=== PATIENT | female | born 1980 | race Caucasian/White ===

== ENCOUNTER 2020-08-18 12:29 | Outpatient (CLI) | payer BC, SELFPAY ==
[2020-08-18 13:11] LABS: Basophils Absolute Auto 0.1 K/mm3 (0.0-0.1); Basophils Percent Auto 0.9 % (0.2-1.2); Eosinophils Absolute Auto 0.3 K/mm3 (0-0.3); Eosinophils Percent Auto 2.7 % (0-4.4); Hematocrit 39.8 % (37.0-47.0); Hemoglobin 13.4 g/dL (12.0-15.0); Immature Granulocyte Absolute 0.03 K/mm3 (0.00-0.031); Immature Granulocyte Percent A 0.3 % (0-0.5); Lymphocytes Absolute Auto 3.03 K/mm3 (0.9-3.2); Lymphocytes Percent Auto 27.9 % (18.3-44.2); Mean Corpuscular HGB Conc 33.7 g/dl (32-36); Mean Corpuscular Hemoglobin 31.7 pg (26-34); Mean Corpuscular Volume 94.1 fl (80-100); Mean Platelet Volume 10.7 fl (7.4-10.4); Monocytes Absolute Auto 0.8 K/mm3 (0.1-0.6); Monocytes Percent Auto 7.4 % (2.6-8.5); Neutrophils Absolute Auto 6.6 K/mm3 (1.3-6.7); Neutrophils Percent Auto 60.8 % (45.5-73.1); Platelet Count Result 261 k/mm3 (150-375); Red Blood Count 4.23 M/mm3 (4.2-5.4); Red Cell Distribution Width 12.6 % (11.5-14.5); White Blood Count 10.9 K/mm3 (4.5-10.0)
[2020-08-18 13:15] LABS: Add Urine Microscopic? YES; Appearance Urine Clear (Clear); Bacteria Urine Trace /hpf; Bilirubin Urine Negative (Negative); Blood Urine 1+ (Negative); Color Urine Yellow (Yellow); Glucose Urine UA Negative (Negative); Ketones Urine Negative (Negative); Leukocyte Esterase Ur Negative LEU/UL (NEGATIVE); Mucus Urine Rare /lpf; Nitrate Urine Negative (Negative); Protein Urine Negative (Negative); RBC Urine 0-2 /hpf (0-2); Specific Grav Ur 1.017 (1.001-1.035); Squamous Epithelial Cell Urine Rare /hpf (Few); Urobilinogen Urine Negative mg/dL (<2.0); WBC Urine 0-3 /hpf (0-3)
[2020-08-18 13:28] LABS: Amylase 65 U/L (30-110); Lipase 77 U/L (23-300)
[2020-08-18 14:18] LABS: Free T4 Free Thyroxine 0.79 ng/mL (0.78-2.19)
== END 2020-08-18 12:30 | disposition home or self-care (01) ==
PROVIDERS: PCP Physician Assistant; Visit Provider Physician Assistant
DX: R10.84 Generalized abdominal pain (principal)
CPT/HCPCS: 36415; 81001; 82150; 83690; 84439; 84443; 85025; 87086

== ENCOUNTER 2020-08-18 13:35 | Outpatient (CLI) | payer BC, SELFPAY ==
--- NOTE | ~2020-08-18 | CT_ITS ---
EXAMINATION: CT abdomen pelvis w con DATE: 08/18/2020 13:57 INDICATION: Generalized abdominal pain, bloating. Bilateral flank pain for one week. Hematuria. TECHNIQUE: Computed tomography (CT) of the abdomen and pelvis was performed with 100 cc Omnipaque 350 intravenous contrast. Automated exposure control and iterative reconstruction technique were employe d. Exam dose: 471.60 mGy-cm total exam DLP. COMPARISON: 04/11/2019 CT abdomen pelvis FINDINGS: Normal heart size. No pericardial or pleural effusion. The liver, gallbladder, bile ducts, spleen, pancreas and pancreatic duct appear normal. Normal morpho logy of the adrenal glands. No renal mass lesion or urinary tract calculus or hydroureteronephrosis is evident. The urinary bladd er is unremarkable. Normal appendix. There is a prominent amount of fecal material within the colon but no evidence of jordan wel obstruction, bowel wall thickening, pneumatosis or intraperitoneal free air. Occasional sigmoid diverticula; no CT evidence of diverticulitis. Peripherally enhancing 2 cm left ovarian probable corpus luteum cyst. Included skeletal structures are unremarkable. IMPRESSION: No urinary tract calculus or hydroureteronephrosis 2 cm peripherally enhancing ovarian cyst Mild sigmoid colon diverticulosis; no CT evidence of diverticulitis Reviewed, dictated and finalized at [facility]. Reviewed, dictated and finalized at location B. CLERK
== END 2020-08-18 13:36 | disposition home or self-care (01) ==
PROVIDERS: PCP Physician Assistant; Visit Provider Physician Assistant
DX: R10.84 Generalized abdominal pain (principal); N83.202 Unspecified ovarian cyst, left side; K57.90 Diverticulosis of intestine, part unspecified, without perforation or abscess without bleeding
CPT/HCPCS: 74177; Q9967

== ENCOUNTER 2021-03-17 18:58 | Emergency (ER) | payer BC, SELFPAY ==
--- NOTE | ~2021-03-17 | XR_ITS ---
EXAMINATION: XR knee RT min 4V DATE: 03/17/2021 19:50 INDICATION: Right knee anterior swelling. TECHNIQUE: 5 views of right knee were obtained. COMPARISON: None. FINDINGS: Bone alignment is normal. No fracture. There is mild osteoarthritis of patellofemoral terri rtment characterized by tiny marginal osteophytes. There is a small knee joint effusion. IMPRESSION: 1. Mild right knee osteoarthritis. 2. Small right knee joint effusion. Reviewed, dictated and finalized at location A.
[2021-03-17 19:08] VITALS: BP 106/69; PULSE 62; RESP 14; TEMP 36.4; O2SAT 100
--- NOTE | 2021-03-17 19:53 | ED.LOWEXIN ---
HPI - Extremity Injury (Lower) General Chief Complaint: Extremity Injury, Lower Stated Complaint: Possible injury right knee Time Seen by Provider: 03/17/21 19:53 Source: patient, RN notes reviewed and old records reviewed Mode of arrival: ambulatory Limitations: no limitations History of Present Illness HPI Narrative: 40 year old female who presents to express care with complaints of right knee pain and swelling since Tuesday. Patient reports that she knows of no known injury to her right knee. She reports pain anteriorly medial and lateral of right knee with pressure and tightness to posterior aspect of her right knee. Patient has been using compression to her right knee and has taken left over dose of Vicodin and used ice and Tylenol for her discomfort. Pain is aggravated with bending and with ambulation with pain a constant 3/10 tight achy and crampy sensation. Patient states that she has made an appointment with Dr Segundo already and wants x-ray done today since is several days before appointment. MD complaint: other (knee pain right) Related Data Home Medications Medication Instructions Recorded Confirmed levothyroxine [Synthroid] 75 mcg PO DAILY 03/17/21 03/17/21 Allergies Allergy/AdvReac Type Severity Reaction Status Date / Time No Known Allergies Allergy Verified 03/17/21 19:16 Review of Systems Review of Systems: CONSTITUTIONAL: Denies fever, chills, or sweats. EYES: Denies visual changes, redness, or discharge. ENT: Denies rhinorrhea, congestion, sore throat, or otalgia. CARDIOVASCULAR: Denies chest pain, palpitations, or edema. RESPIRATORY: Denies cough or dyspnea. GASTROINTESTINAL: Denies abdominal pain, nausea, vomiting, or diarrhea. GENITOURINARY: Denies dysuria or hematuria. SKIN: Denies rash or itching. MUSCULOSKELETAL: Denies back pain,positive for right knee pain, or myalgia. NEUROLOGIC: Denies headache, numbness, or weakness. PSYCHIATRIC: Positive for history of anxiety or depression. All systems reviewed & are unremarkable except as noted in HPI and below [facility] Past Medical History Medical History (Updated 03/21/21 @ 12:50 by Fani Chavarria NP) Anxiety and depression Fracture, finger right 4th finger with surgical repair Hip dislocation, left from fall Hypothyroid Surgical History Surgical History (Updated 03/21/21 @ 12:49 by Fani Chavarria NP) H/O laparoscopy endometriosis H/O sinus surgery History of hysterectomy History of left knee surgery ACL and other reconstruction Family History Family History (Updated 03/21/21 @ 12:59 by Fani Chavarria NP) Grandparent Cancer Heart disease Hypertension Arthritis Respiratory illness Mother Respiratory illness Other Cerebrovascular accident Social History Social History (Updated 03/21/21 @ 12:51 by Fani Chavarria NP) Smoking status: Former smoker Additional smoking assessment comments: quit 2020 after smoking 5 years Alcohol intake: current Alcohol use details: social Substance use: never Living arrangements: with family Gender identity (if verbalized by the patient): Female Comments At time of signature, agree with nursing past medical, surgical, social and family history. There is no relevant family history pertinent to the presenting complaint Exam Narrative: GENERAL: Well-appearing, well-nourished, and in no acute distress. HEAD: Normocephalic, atraumatic. EYES: PERRLA and EOMI. ENT: Nares clear, no rhinorrhea or epistaxis. Mucous membranes moist. NECK: Supple.no lymphadenopathy CHEST: Clear to auscultation. No respiratory distress.SAO2 100% on room air HEART: Regular rate and rhythm. No murmur heard. Normal peripheral pulses. ABDOMEN: Soft, nontender, nondistended, normal active bowel sounds. EXTREMITIES: Normal range of motion. No edema with exception to pain of right knee with tightness and mild swelling to right knee to anterior lateral and posterior aspect of her right knee,
== END 2021-03-17 20:23 | disposition home or self-care (01) ==
PROVIDERS: Emergency Provider Registered Nurse; PCP Physician Assistant
DX: M25.461 Effusion, right knee (principal); M25.561 Pain in right knee; F41.9 Anxiety disorder, unspecified; F32.9 Major depressive disorder, single episode, unspecified; E03.9 Hypothyroidism, unspecified
CPT/HCPCS: 73564; 99213; G0463

== ENCOUNTER → 2021-09-28 08:48 | Outpatient (CLI) | payer BC, SELFPAY ==
--- NOTE | ~2021-09-28 | CT_ITS ---
EXAMINATION: CT soft tissue neck w con DATE: 09/28/2021 09:15 INDICATION: Cervical lymphadenopathy. TECHNIQUE: Computed tomography (CT) of the neck was performed with 75 mL Omnipaque-350 intravenous co ntrast. Automated exposure control and iterative reconstruction technique were employed. The dose-joaquin gth product was 398.73 mGy-cm. COMPARISON: Neck CT 05/19/2017 FINDINGS: There are no pathologically enlarged lymph nodes. There is no visible plaque in the proxima l internal carotid arteries. There is a skin marker at right lateral neck. There is no abnormal mass or lymphadenopathy in this area. There is mild mucosal thickening in the paranasal sinuses. There are changes of uncinectomies and ethmoidectomies. The mastoid air cells are normal. There is moderate ce rvical spondylosis. IMPRESSION: 1. No abnormal mass or lymphadenopathy. Reviewed, dictated and finalized at location A. [employer]
== END ==
PROVIDERS: PCP Physician Assistant; Visit Provider Physician Assistant
DX: R59.0 Localized enlarged lymph nodes (principal)
CPT/HCPCS: 70491; Q9967

== ENCOUNTER → 2021-11-12 12:39 | Outpatient (CLI) | payer BC, SELFPAY ==
--- NOTE | ~2021-11-12 | MM_ITS ---
EXAMINATION: MM screening luke BI w linda HISTORY: Screening mammogram TECHNIQUE: Craniocaudal and mediolateral oblique 3-D tomosynthesis images were obtained and synthetic 2-D images were generated. CAD analysis was submitted and interpreted. COMPARISON: No prior mammogram is available for comparison at this institution. BREAST PARENCHYMAL COMPOSITION: The breasts are heterogeneously dense, which may obscure small masses . FINDINGS: RIGHT BREAST: There is no suspicious mass, calcification, or architectural distortion to suggest debra gnancy. LEFT BREAST: There is a possible mass in the middle third of the central, slightly lower breast. IMPRESSION: 1. Possible left breast mass. 2. Additional mammographic views and possible breast ultrasound are recommended. BI-RADS Category 0: Incomplete: Needs additional imaging evaluation. Reviewed, dictated and finalized at location A. IMPRESSION: 1. Possible left breast mass. 2. Additional mammographic views and possible breast ultrasound are recommended . BI-RADS Category 0: Incomplete: Needs additional imaging evaluation.
== END ==
PROVIDERS: PCP Physician Assistant; Visit Provider Physician Assistant
DX: Z12.31 Encounter for screening mammogram for malignant neoplasm of breast (principal); R92.8 Other abnormal and inconclusive findings on diagnostic imaging of breast
CPT/HCPCS: 77063; 77067

== ENCOUNTER → 2021-12-01 08:00 | Outpatient (CLI) | payer BC, SELFPAY ==
--- NOTE | ~2021-12-01 | MMUS_ITS ---
EXAMINATION: MM diagnostic luke LT w linda, US breast LT complete HISTORY: Possible left breast mass reported on 11/12/2021 screening mammogram examination TECHNIQUE: Additional 3-D tomosynthesis images of the left breast were performed and synthetic 2-D im ages were generated. CAD analysis was submitted and interpreted. High resolution complete left breast ultrasound examination including all 4 quadrants and subareolar area was performed. COMPARISON: 11/12/2021 bilateral screening mammogram BREAST PARENCHYMAL COMPOSITION: The breasts are heterogeneously dense, which may obscure small masses . FINDINGS: MAMMOGRAPHIC FINDINGS: No suspicious mass, architectural distortion, malignant calcification, skin thickening or retraction of the left breast is detected. ULTRASOUND: 1:00 3 cm from nipple: Parallel circumscribed sonolucency measuring 7 x 2.5 x 7.4 mm, with through tr ansmission, consistent with cyst 1:00 3 cm from nipple: 2 x 4.5 x 4.6 mm cyst 4:00 4 cm from nipple: Approximately 3.9 x 7.8 mm parallel circumscribed hypoechoic lesion without in ternal vascularity or posterior shadowing, likely benign 7:00 4 cm from nipple: 2.6 x 2.5 x 2.9 mm circumscribed mildly irregular hypoechoic lesion without in ternal vascularity or posterior shadowing; six-month left breast ultrasound follow-up is recommended 7:00 4 cm from nipple: Parallel circumscribed hypoechoic lesion measuring 2 x 8.9 x 11 mm. No interna l vascularity or posterior shadowing 7:00 3 cm from nipple: Parallel circumscribed 1.4 x 4.5 mm sonolucency, likely a small cyst 9:00 6 cm from nipple: Parallel 3 mm cyst 10:00 4 cm from nipple: 2.5 x 3.4 mm probable septated cyst 10:00 2 cm from nipple: Parallel circumscribed hypoechoic 2.6 x 8.3 x 6.4 mm lesion without suspiciou s shadowing 11:00 1 cm from nipple: 3.6 x 9.2 x 5.7 mm septated cyst IMPRESSION: 1. Probably benign findings 2. Six-month targeted left breast ultrasound follow-up with attention to 7:00 4 cm from nipple BI-RADS category 3, probably benign findings. Reviewed, dictated and finalized at location A. IMPRESSION: 1. Probably benign findings 2. Six-month targeted left breast ultrasound follow-up with attention to 7:00 4 cm from nipple BI-RADS category 3, probably benign findings.
== END ==
PROVIDERS: PCP Physician Assistant; Visit Provider Physician Assistant
DX: R92.8 Other abnormal and inconclusive findings on diagnostic imaging of breast (principal); N63.24 Unspecified lump in the left breast, lower inner quadrant; N60.02 Solitary cyst of left breast
CPT/HCPCS: 76641; 77061; 77065; G0279

== ENCOUNTER 2022-07-13 09:11 | Emergency (ER) | payer BC, SELFPAY ==
[2022-07-13 09:15] VITALS: BP 112/66; PULSE 77; RESP 16; TEMP 37.4; O2SAT 100
--- NOTE | 2022-07-13 09:21 | ED.GENADULT ---
HPI - General Adult General Chief complaint: Ear Stated complaint: EARS CLOGGED Time Seen by Provider: 07/13/22 09:21 Source: patient, RN notes reviewed and old records reviewed Mode of arrival: ambulatory Limitations: no limitations History of Present Illness HPI narrative: 41-year-old female presents to the [facility] with complaints of bilateral clogged ears. The right is worse than the left. States has been going on for about a week and then last night became worse. tried to call ENT this am and was not able to be seen until September. No treatment prior to arrival. MD complaint: ear clogged Onset (ago): week(s) (1) Location: right (ear) Severity: mild Pain Consistency: constant Relieving factors: none Associated symptoms: other (decreased hearing) Treatments prior to arrival: none Related Data Allergies Allergy/AdvReac Type Severity Reaction Status Date / Time No Known Allergies Allergy Verified 07/13/22 09:16 Review of Systems Review of Systems: All systems reviewed & are unremarkable except as noted in HPI and below Constitutional: Constitutional: Reports no additional constitutional complaints Eyes: Eyes: Reports no additional eye complaints ENT: Reports as per HPI (decreased hearing, ear pressure) Cardiovascular: Cardiovascular: Reports no additional cardiovascular complaints, Denies chest pain and Denies dyspnea Respiratory: Respiratory: Reports no additional respiratory complaints, Denies chest congestion, Denies cough and Denies dyspnea Gastrointestinal: Gastrointestinal: Reports no additional gastrointestinal complaints Musculoskeletal: Musculoskeletal: Reports no additional musculoskeletal complaints Integumentary/Breasts: Skin/Breast: Reports system reviewed and no additional complaints, except as docu Neurologic: Reports system reviewed and no additional complaints, except as documented Psychiatric: Psychiatric: Reports no additional psychiatric complaints Allergic/Immunologic: Allergic/Immunologic: Reports no additional allergic/immunologic complaints [facility] Past Medical History Medical History Anxiety and depression Fracture, finger right 4th finger with surgical repair Hip dislocation, left from fall Hypothyroid Surgical History Surgical History H/O laparoscopy endometriosis H/O sinus surgery History of hysterectomy History of left knee surgery ACL and other reconstruction Family History Family History Grandparent Cancer Heart disease Hypertension Arthritis Respiratory illness Mother Respiratory illness Hypertension Depression Father Hypertension Other Cerebrovascular accident Social History Social History Smoking status: Former smoker Additional smoking assessment comments: quit 2020 after smoking 5 years Alcohol intake: current Alcohol use details: social Substance use: never Gender identity (if verbalized by the patient): Female Comments At the time of my signature, I reviewed and agree with the nursing past medical, surgical, social, and family history. There is no relevant family history pertinent to the patient complaint. Exam Const: General: cooperative, healthy appearing, comfortable, no acute distress, well developed, alert and average body habitus Nutritional Appearance: average body habitus Orientation/consciousness: patient oriented x3 Limitations: no limitations HENMT: Head: normal to inspection Ears: external ears normal, Abnormal EAC present excessive cerumen on the right; no erythema and TM abnormal with fluid behind the TM bilateral Face/Nose/Sinus: Normal external nose present, Normal nares present, Normal nasal mucous membranes and turbinates present and normal facial exam Face and sinus: normal
== END 2022-07-13 09:39 | disposition home or self-care (01) ==
PROVIDERS: Emergency Provider Nurse Practitioner; PCP Physician Assistant
DX: H65.02 Acute serous otitis media, left ear (principal); H61.21 Impacted cerumen, right ear; Z87.891 Personal history of nicotine dependence; E03.9 Hypothyroidism, unspecified
CPT/HCPCS: 69210; 99213; G0463

== ENCOUNTER → 2022-08-27 08:35 | Outpatient (CLI) | payer BC, SELFPAY ==
--- NOTE | ~2022-08-27 | US_ITS ---
US breast LT limited 08/27/2022 09:02 Indication: Follow-up left breast masses Procedure: High-resolution Limited ultrasound of the left breast Comparison: Ultrasound dated 12/01/2021 Findings: At 7:00, 4 cm from the nipple, there is an oval hypoechoic mass with echogenic hilum measur ing 12 x 3 x 11 mm, most likely benign intramammary lymph nodes, without significant change from prio r study overlying for technique. No internal vascularity or significant posterior features. Also at t his location there is an oval circumscribed hypoechoic mass measuring 5 mm with parallel orientation, no internal vascularity and no posterior features, likely benign. Impression: 1: Likely benign left breast masses at 7:00, 4 cm from the nipple. BI-RADS CATEGORY 3-PROBABLY BENIGN FINDING RECOMMENDATION: Six-month follow-up diagnostic bilateral mammogram and Limited left breast ultrasound recommended. Reviewed, dictated and finalized at location A. [employer]IVE REST[employer]ER Impression: 1: Likely benign left breast masses at 7:00, 4 cm from the nipple. BI-RADS CATEGORY 3-PROBABLY BENIGN FINDING RECOMMENDATION: Six-month follow-up diagnostic bilateral mammogram and Limited left breast ultrasound recommended.
== END ==
PROVIDERS: PCP Physician Assistant; Visit Provider Physician Assistant
DX: N60.02 Solitary cyst of left breast (principal); R92.8 Other abnormal and inconclusive findings on diagnostic imaging of breast
CPT/HCPCS: 76642

== ENCOUNTER 2023-01-31 18:28 | Emergency (ER) | payer BC, SELFPAY ==
[2023-01-31 18:31] VITALS: BP 114/72; PULSE 67; RESP 16; TEMP 36.6; O2SAT 100
--- NOTE | 2023-01-31 18:33 | ECG_ITS ---
Measurements Intervals [place] Rate: 63 P: 68 IA: 141 QRS: 62 QRSD: 111 T: 42 QT: 398 QTc: 408 Interpretive Statements SINUS RHYTHM POSSIBLE RIGHT VENTRICULAR CONDUCTION DELAY [RSR (QR) IN V1/V2] NO PREVIOUS ECG AVAILABLE FOR COMPARISON Electronically Signed On 02-01-2023 15:00:23 CDT by Sindy Best M.D.
[2023-01-31 18:53] LABS: Basophils Absolute Auto 0.1 K/mm3 (0.0-0.1); Basophils Percent Auto 0.8 % (0.2-1.2); Eosinophils Absolute Auto 0.1 K/mm3 (0-0.3); Eosinophils Percent Auto 0.8 % (0-4.4); Hematocrit 36.6 % (37.0-47.0); Hemoglobin 12.5 g/dL (12.0-15.0); Immature Granulocyte Absolute 0.02 K/mm3 (0.00-0.031); Immature Granulocyte Percent A 0.2 % (0-0.5); Lymphocytes Absolute Auto 2.64 K/mm3 (0.9-3.2); Lymphocytes Percent Auto 22.3 % (18.3-44.2); Mean Corpuscular HGB Conc 34.2 g/dl (32-36); Mean Corpuscular Hemoglobin 32.1 pg (26-34); Mean Corpuscular Volume 93.8 fl (80-100); Mean Platelet Volume 10.5 fl (7.4-10.4); Monocytes Absolute Auto 0.7 K/mm3 (0.1-0.6); Monocytes Percent Auto 5.8 % (2.6-8.5); Neutrophils Absolute Auto 8.3 K/mm3 (1.3-6.7); Neutrophils Percent Auto 70.1 % (45.5-73.1); Platelet Count Result 251 k/mm3 (150-375); Red Cell Distribution Width 12.4 % (11.5-14.5); White Blood Count 11.8 K/mm3 (4.5-10.0)
[2023-01-31 19:02] LABS: Alanine Aminotransferase 15 U/L (6-35); Albumin Level 4.3 g/dL (3.5-5.1); Alkaline Phosphatase 62 U/L (38-126); Anion Gap 5 mmol/L (8-16); Aspartate Amino Transferase 26 U/L (14-36); Bilirubin,Total 0.4 mg/dL (0.2-1.3); Blood Urea Nitrogen 6 mg/dL (7-17); Calcium 8.6 mg/dL (8.4-10.2); Carbon Dioxide 25 mmol/L (22-30); Chloride 107 mmol/L (98-107); Estimated CRCL calculation 125 ml/min; Estimated Glomerular Filt Rate > 60; Glucose 94 mg/dL (65-110); Potassium 3.3 mmol/L (3.4-5.0); Sodium 137 mmol/L (137-145)
--- NOTE | 2023-01-31 19:21 | PC.NURSE ---
pt up to triage desk, states she feels much better and she just needs to be with her kids right now, pt states she will come back if she starts to feel worse again.
== END 2023-01-31 19:21 | disposition left against medical advice (07) ==
PROVIDERS: Emergency Provider Emergency Medicine; PCP Physician Assistant
DX: R55 Syncope and collapse (principal)
CPT/HCPCS: 36415; 80053; 85025; 93005; 99199

== ENCOUNTER 2023-02-02 11:51 | Emergency (ER) | payer BC, SELFPAY ==
--- NOTE | ~2023-02-02 | CT_ITS ---
EXAMINATION: CT BRAIN W/O DATE: 02/02/2023 13:02 INDICATION: Syncope. Dizziness. Headache. TECHNIQUE: Computed tomography (CT) of the head was performed without intravenous contrast. The dose- length product was 605.33 mGy-cm. Automated exposure control and iterative reconstruction technique were employed. COMPARISON: CT dated FINDINGS: Normal brain parenchymal volume for age. Normal ash-white differentiation. No acute intrac ranial hemorrhage, infarction, mass or mass effect. No ventriculomegaly or midline shift. Midline sagittal images demonstrate a normal corpus callosum, c raniovertebral junction and sella turcica. Basilar cisterns are patent. Paranasal sinuses and mastoids are pneumatized. No depressed skull fractures. IMPRESSION: 1. No acute intracranial abnormality. Reviewed, dictated and finalized at location []
--- NOTE | ~2023-02-02 | CT_ITS ---
EXAMINATION: CT facial & cervical spine wo DATE: 02/02/2023 13:02 INDICATION: Syncope. Dizziness. Headache. TECHNIQUE: Computed tomography (CT) of the maxillofacial region and cervical spine was performed with out intravenous contrast. The dose-length product was 605.33 mGy-cm. Automated exposure control and i terative reconstruction technique were employed. COMPARISON: None FINDINGS: FACIAL CT: No acute maxillofacial fracture. There are surgical changes of previous surgical resection of the ost iomeatal units. There is mucoperiosteal reaction of the right maxillary sinus. Orbits are intact with out evidence for blowout fracture. Temporomandibular joints are symmetric. CERVICAL SPINE CT: Straightening of cervical lordosis. There is disc narrowing and endplate degenerative change at C5-6. Odontoid process is normal. Craniovertebral junction is normal. Odontoid process is normal. Mild unc inate hypertrophy, left greater than right at C5-6. Lung apices are normal. No paraspinal soft tissue abnormality. No acute fracture or traumatic malalignment. IMPRESSION: 1. No acute bone or joint abnormality. Reviewed, dictated and finalized at location []
[2023-02-02 12:02] VITALS: PULSE 60
--- NOTE | 2023-02-02 12:09 | ECG_ITS ---
Measurements Intervals [place] Rate: 60 P: 30 [place]: 147 QRS: 86 QRSD: 117 T: 42 QT: 441 QTc: 442 Interpretive Statements SINUS RHYTHM WITH SINUS ARRHYTHMIA INCOMPLETE RIGHT BUNDLE BRANCH BLOCK [90+ ms QRS DURATION, TERMINAL R IN V1/V2, 40+ ms S IN I/aVL/V4/V5/V6] COMPARED TO ECG 01/31/2023 18:41:02 SINUS ARRHYTHMIA NOW PRESENT INCOMPLETE RIGHT BUNDLE-BRANCH BLOCK NOW PRESENT Electronically Signed On 02-02-2023 20:03:11 CDT by Sindy Best M.D.
[2023-02-02 12:14] VITALS: BP 115/98; PULSE 61; RESP 20; TEMP 36.3; O2SAT 100
--- NOTE | 2023-02-02 12:18 | ED.SYNCOPE ---
HPI - Syncope General Chief Complaint: Weakness Stated Complaint: fainted few days prior; residual head pain Time Seen by Provider: 02/02/23 12:09 History of Present Illness HPI narrative: Pt had a syncopal episode in her bathroom 2 nights ago and landed on face. Pt says her tried to get her up and she passed out again. Pt went to [place] [facility] afterward but left prior to treatment due to long wait. Pt complains of pain on right side of her face and neck and under right shoulder blade. Pt also has BRAND. Pt also complains of intermittent tingling in her right hand for several months. Pt says she has had recurrent syncope in past and has been told it is dehydration in past. Related Data Home Medications Medication Instructions Recorded Confirmed dextroamphetamine-amphetamine 15 15 mg PO DAILY 02/02/23 02/02/23 mg tablet sertraline 50 mg tablet 50 mg PO DAILY 02/02/23 02/02/23 Allergies Allergy/AdvReac Type Severity Reaction Status Date / Time No Known Allergies Allergy Verified 01/31/23 18:28 Review of Systems Review of Systems: All systems reviewed & are unremarkable except as noted in HPI and below PMFSH Past Medical History Medical History Anxiety and depression Fracture, finger right 4th finger with surgical repair Hip dislocation, left from fall Hypothyroid Surgical History Surgical History H/O laparoscopy endometriosis H/O sinus surgery History of hysterectomy History of left knee surgery ACL and other reconstruction Family History Family History Grandparent Cancer Heart disease Hypertension Arthritis Respiratory illness Mother Respiratory illness Hypertension Depression Father Hypertension Other Cerebrovascular accident Social History Social History Smoking status: Former smoker Additional smoking assessment comments: quit 2020 after smoking 5 years Alcohol intake: current Alcohol use details: social Substance use: never Living arrangements: with family Gender identity (if verbalized by the patient): Female Exam Const: General: healthy appearing Nutritional Appearance: well nourished Orientation/consciousness: patient oriented x3 Limitations: no limitations HENMT: Head: normal to inspection Face and sinus: normal facial exam Mouth: Yes Normal oral and palatal mucosa present Throat: posterior oropharynx normal Eyes: Pupils: Equal, round and reactive pupils present Neck: Neck: normal visual inspection and no lymphadenopathy Chest: Chest palpation & inspection: normal inspection of the chest Resp: Effort & Inspection: normal respiratory effort Auscultation: clear to auscultation bilaterally Cardio: Rate: regular rate Rhythm: regular rhythm GI: GI Palp: Yes Soft to palpation Auscultation: normal bowel sounds Back/Spine/Pelvis: Back: no CVA tenderness Skin: General skin exam: normal color Rashes: no rashes Wounds: no wounds Neuro: General: patient oriented x3, moves all extremities, no meningeal signs, no focal motor deficits and CN's II-XI intact bilaterally Cranial nerves: Yes Nystagmus not present Speech: normal speech Gait exam (Neuro): Normal gait present Extrem: General: normal to inspection and no clubbing, cyanosis or edema Psych: Mental Status: mental status grossly normal Affect: normal affect Attitude: cooperative Course Vital Signs Vital signs: Vital Signs Pulse Rate 60 02/02/23 12:02 Oxygen Delivery Room Air 02/02/23 12:02 Temperature 97.3 F L 02/02/23 12:14 Pulse Rate 52 L 02/02/23 12:58 Respiratory Rate 18 02/02/23 12:58 Blood Pressure 107/73 02/02/23 12:58 Pulse Oximetry 100 02/02/23 12:58 Oxygen Delivery Room Air 02/02/23 12:58 MDM - Syncop
[2023-02-02] MEDS: SODIUM CHLORIDE 0.9% IV 1,000 ML 999 ML IV CONT (12:25)
[2023-02-02 12:28] LABS: Basophils Absolute Auto 0.09 K/mm3 (0.00-0.10); Eosinophils Absolute Auto 0.18 K/mm3 (0.02-0.50); Eosinophils Percent Auto 2.1 % (1.0-6.0); Hematocrit 38.2 % (35.0-49.0); Hemoglobin 12.6 g/dL (12.0-15.0); Immature Granulocyte Absolute 0.02 K/mm3 (0.00-0.00); Immature Granulocyte Percent A 0.2 % (0.0-0.0); Lymphocytes Absolute Auto 2.79 K/mm3 (1.10-4.50); Lymphocytes Percent Auto 32.3 % (18.0-42.0); Mean Corpuscular Hemoglobin 32.3 pg (27.0-31.0); Mean Corpuscular Volume 97.9 fL (78.0-102.0); Mean Platelet Volume 11.1 fl (9.2-11.8); Monocytes Absolute Auto 0.44 K/mm3 (0.10-0.90); Monocytes Percent Auto 5.1 % (2.0-11.0); Neutrophils Absolute Auto 5.1 K/mm3 (1.7-7.2); Neutrophils Percent Auto 59.3 % (50.0-70.0); Platelet Count Result 244 K/mm3 (150-420); Red Cell Distribution Width 12.6 % (11.6-14.4); White Blood Count 8.7 K/mm3 (4.8-10.8)
[2023-02-02 12:44] LABS: Alanine Aminotransferase 23 U/L (14-59); Albumin Level 3.8 g/dL (3.4-5.0); Alkaline Phosphatase 64 U/L (46-116); Anion Gap 8 mmol/L (8-16); Aspartate Amino Transferase 17 U/L (15-37); Bilirubin,Total 0.4 mg/dL (0.00-1.00); Blood Urea Nitrogen 10 mg/dL (7-18); Calcium 8.4 mg/dL (8.5-10.1); Carbon Dioxide 29 mmol/L (21-32); Chloride 104 mmol/L (98-108); Estimated CRCL calculation 95 ml/min; Estimated Glomerular Filt Rate > 60; Glucose 110 mg/dL (70-99); Magnesium 1.8 mg/dL (1.8-2.4); Osmolality Calculated 292 mOsm/kg (285-295); Partial Thromboplastin Time 27.2 SEC (23.90-30.70); Potassium 3.6 mmol/L (3.5-5.1); Prothrombin Time 10.8 Seconds (9.50-12.10); Sodium 141 mmol/L (136-145); Total Protein 7.1 g/dL (6.4-8.2)
[2023-02-02 12:58] VITALS: BP 107/73; PULSE 52; RESP 18; O2SAT 100
[2023-02-02 13:38] VITALS: BP 111/75; PULSE 59; RESP 18; O2SAT 99
--- NOTE | 2023-02-02 13:40 | PC.NURSE ---
PT RESTED ON STRETCHER WITH IVF INFUSING THROUGHOUT ED VISIT. NAD NOTED. PT DENIES ANY NEEDS OR COMPLAINTS. PT IS TO BE DC HOME, ERP HAS SPOKEN WITH PT TO UPDATE STATUS OF RESULTS.
== END 2023-02-02 13:40 | disposition home or self-care (01) ==
PROVIDERS: Emergency Provider Emergency Medicine; PCP Physician Assistant
DX: R55 Syncope and collapse (principal); E03.9 Hypothyroidism, unspecified; F41.9 Anxiety disorder, unspecified; F32.A Depression, unspecified; Z87.891 Personal history of nicotine dependence
CPT/HCPCS: 36415; 70450; 70486; 72125; 80053; 83735; 85025; 85610; 85730; 93005; 96360; 99284; J7030

== ENCOUNTER 2023-07-28 18:04 | Emergency (ER) | payer BC, SELFPAY ==
--- NOTE | ~2023-07-28 | CT_ITS ---
EXAMINATION: CT abdomen pelvis w con DATE: 07/28/2023 19:36 INDICATION: Left-sided umbilical and pelvic pain TECHNIQUE: Computed tomography (CT) of the abdomen and pelvis was performed with 100 mL Omnipaque-350 intravenous contrast. Automated exposure control and iterative reconstruction technique were employe d. The dose-length product was 315.90 mGy-cm. COMPARISON: 08/18/2020 FINDINGS: Lung bases are clear. Heart size is normal. No pericardial or pleural effusion. Liver, gallbladder, s pleen, pancreas, bilateral adrenal glands and kidneys are normal. Bowels including the appendix are n ormal. The uterus is not identified and has likely been surgically resected. Bladder and bilateral ad nexa are unremarkable. No free intraperitoneal gas or fluid. No pathologically enlarged abdominal or pelvic lymphadenopathy. Mild lumbar levocurvature with minimal spondylosis. IMPRESSION: 1. No acute intra-abdominal/pelvic process. Reviewed, dictated and finalized at location A. D NURSE CASE MANAGER
[2023-07-28 18:04] VITALS: BP 98/66; PULSE 83; RESP 17; TEMP 36.7; O2SAT 100
[2023-07-28 18:47] LABS: Basophils Percent Auto 1.2 % (0.0-1.0); Eosinophils Absolute Auto 0.29 K/mm3 (0.02-0.50); Eosinophils Percent Auto 3.4 % (1.0-6.0); Hematocrit 37.8 % (35.0-49.0); Hemoglobin 12.5 g/dL (12.0-15.0); Immature Granulocyte Absolute 0.03 K/mm3 (0.00-0.00); Immature Granulocyte Percent A 0.3 % (0.0-0.0); Lymphocytes Absolute Auto 3.12 K/mm3 (1.10-4.50); Lymphocytes Percent Auto 36.3 % (18.0-42.0); Mean Corpuscular HGB Conc 33.1 g/dL (32.0-36.0); Mean Corpuscular Hemoglobin 32.2 pg (27.0-31.0); Mean Corpuscular Volume 97.4 fL (78.0-102.0); Mean Platelet Volume 10.4 fl (9.2-11.8); Monocytes Absolute Auto 0.62 K/mm3 (0.10-0.90); Monocytes Percent Auto 7.2 % (2.0-11.0); Neutrophils Absolute Auto 4.4 K/mm3 (1.7-7.2); Neutrophils Percent Auto 51.6 % (50.0-70.0); Platelet Count Result 264 K/mm3 (150-420); Red Blood Count 3.88 M/mm3 (4.20-5.40); Red Cell Distribution Width 12.6 % (11.6-14.4); White Blood Count 8.6 K/mm3 (4.8-10.8)
[2023-07-28] MEDS: SODIUM CHLORIDE 0.9% IV 1,000 ML 999 ML IV CONT (18:50)
[2023-07-28] MEDS: ONDANSETRON INJ 4 MG/2 ML VIAL IV PUSH (18:50)
[2023-07-28 19:02] LABS: Alanine Aminotransferase 21 U/L (14-59); Albumin Level 3.7 g/dL (3.4-5.0); Alkaline Phosphatase 54 U/L (46-116); Anion Gap 4 mmol/L (8-16); Aspartate Amino Transferase 25 U/L (15-37); Bilirubin,Total 0.4 mg/dL (0.00-1.00); Blood Urea Nitrogen 10 mg/dL (7-18); Calcium 8.9 mg/dL (8.5-10.1); Carbon Dioxide 34 mmol/L (21-32); Chloride 101 mmol/L (98-108); Estimated Glomerular Filt Rate > 60; Glucose 67 mg/dL (70-99); Lipase 35 U/L (16-77); Osmolality Calculated 285 mOsm/kg (285-295); Partial Thromboplastin Time 27.1 SEC (23.90-30.70); Potassium 3.4 mmol/L (3.5-5.1); Prothrombin Time 11.3 Seconds (9.50-12.10); Sodium 139 mmol/L (136-145); Total Protein 6.7 g/dL (6.4-8.2)
[2023-07-28 19:07] LABS: Lactic Acid Reflex 1.5 mmol/L (0.4-2.0)
[2023-07-28 20:41] LABS: Appearance Urine Clear (Clear); Bilirubin Urine Negative (Negative); Color Urine Yellow (Yellow); Glucose Urine UA Negative (Negative); Ketones Urine Negative (Negative); Leukocyte Esterase Ur Negative LEU/UL (Negative); Nitrate Urine Negative (Negative); Protein Urine Negative (Negative); pH Urine 6.5 (5.0-8.0)
[2023-07-28 20:49] LABS: Add Urine Microscopic? YES; Blood Urine Trace-lysed (Negative); RBC Urine 0-2 /hpf (0-2); Squamous Epithelial Cell Urine Rare /hpf (Few); WBC Urine 0-3 /hpf (0-3)
[2023-07-28 20:50] LABS: Bacteria Urine Trace /hpf
--- NOTE | 2023-07-28 21:09 | ED.ABDPAIN ---
HPI - Abdominal Pain General Chief Complaint: Abdominal Pain Stated Complaint: abdominal pain Time Seen by Provider: 07/28/23 18:08 Source: patient Mode of arrival: ambulatory Limitations: no limitations History of Present Illness HPI narrative: this is 42-year-old female with no significant past medical history has history of surgical hysterectomy has her ovaries in place, has been painful intercourse, with no fever chills no flank pain no nausea vomiting no chest pain shortness of breath. MD elicited complaint: abdominal pain Onset (ago): day(s) Pain Consistency: intermittent Related Data Home Medications Medication Instructions Recorded Confirmed dextroamphetamine-amphetamine 15 15 mg PO DAILY 02/02/23 07/28/23 mg tablet sertraline 50 mg tablet 50 mg PO DAILY 02/02/23 07/28/23 Allergies Allergy/AdvReac Type Severity Reaction Status Date / Time No Known Allergies Allergy Verified 07/28/23 18:05 Review of Systems Review of Systems: All systems reviewed & are unremarkable except as noted in HPI and below PMFSH Past Medical History Medical History Anxiety and depression Fracture, finger right 4th finger with surgical repair Hip dislocation, left from fall Hypothyroid Surgical History Surgical History H/O laparoscopy endometriosis H/O sinus surgery History of hysterectomy History of left knee surgery ACL and other reconstruction Family History Family History Grandparent Cancer Heart disease Hypertension Arthritis Respiratory illness Mother Respiratory illness Hypertension Depression Father Hypertension Other Cerebrovascular accident Social History Social History Smoking status: Former smoker Additional smoking assessment comments: quit 2020 after smoking 5 years Alcohol intake: current Alcohol use details: social Substance use: never Living arrangements: with family Gender identity (if verbalized by the patient): Female Exam Const: General: healthy appearing Nutritional Appearance: well nourished Orientation/consciousness: patient oriented x3 Limitations: no limitations HENMT: Head: normal to inspection Neck: Neck: normal visual inspection Chest: Chest palpation & inspection: normal inspection of the chest Resp: Effort & Inspection: normal respiratory effort Auscultation: clear to auscultation bilaterally Cardio: Rate: regular rate Rhythm: regular rhythm GI: GI Palp: Yes Soft to palpation and Yes Tenderness to palpation present (GI) : General: Yes bladder normal to palpation Skin: General skin exam: normal color Rashes: no rashes Psych: Mental Status: mental status grossly normal Course Course Emergency Course: Labs and CT scan were reviewed with patient patient received pain medication UA was performed and reviewed with no acute abnormalities. After reassessment patient's pain level has improved. Vital Signs Vital signs: Vital Signs Temperature 36.7 C 07/28/23 18:04 Pulse Rate 83 07/28/23 18:04 Respiratory Rate 17 07/28/23 18:04 Blood Pressure 98/66 L 07/28/23 18:04 Pulse Oximetry 100 07/28/23 18:04 Temperature 36.7 C 07/28/23 18:04 Pulse Rate 83 07/28/23 18:04 Respiratory Rate 17 07/28/23 18:04 Blood Pressure 98/66 L 07/28/23 18:04 Pulse Oximetry 100 07/28/23 18:04 MDM - Abdominal Pain Lab Data 07/28/23 18:43 07/28/23 18:43 Labs: Lab Results 07/28/23 07/28/23 Range/Units 18:43 20:35 WBC 8.6 (4.8-10.8) K/mm3 RBC 3.88 L (4.20-5.40) M/mm3 Hgb 12.5 (12.0-15.0) g/dL Hct 37.8 (35.0-49.0) % MCV 97.4 (78.0-102.0) fL MCH 32.2 H (27.0-31.0) pg MCHC 33.1 (32.0-36.0) g/dL RDW 12.6 (11.6-14.4) %
== END 2023-07-28 21:28 | disposition home or self-care (01) ==
PROVIDERS: Emergency Provider Emergency Medicine; PCP Physician Assistant
DX: N94.10 Unspecified dyspareunia (principal); R10.9 Unspecified abdominal pain; F41.9 Anxiety disorder, unspecified; F32.A Depression, unspecified; Z79.899 Other long term (current) drug therapy; Z87.891 Personal history of nicotine dependence
CPT/HCPCS: 36415; 74177; 80053; 81001; 83605; 83690; 85025; 85610; 85730; 99284; J2405; J7030; Q9967

== ENCOUNTER 2023-09-15 12:12 | Emergency (ER) | payer BC, SELFPAY ==
[2023-09-15 12:20] VITALS: BP 127/76; PULSE 92; RESP 16; TEMP 37.2; O2SAT 100
[2023-09-15 12:27] VITALS: BP 127/76; PULSE 92; RESP 16; TEMP 37.2; O2SAT 100
--- NOTE | 2023-09-15 12:31 | ED.URI ---
HPI - URI/Sore Throat General Chief Complaint: Upper Respiratory Infection Stated Complaint: Fever/Cough Time Seen by Provider: 09/15/23 12:32 Source: patient and RN notes reviewed Mode of arrival: ambulatory Limitations: no limitations History of Present Illness HPI Narrative: 43-year-old female presenting for complaint of headache, body aches, sinus pressure/congestion, cough, fever/chills. Onset 5 days. Also reports a rash to right neck/trap area onset the same time. Rash is slightly tender, no itching or drainage. Denies changes to soap, detergent, lotion, or any other exposures. No one else in the house or any contacts with similar symptoms. Taking multiple otc meds and started a left over Zpack. Denies sob, wheezing, n/v/d. Tested negative for covid 2 days after symptom onset. MD elicited complaint: cough Related Data Home Medications Medication Instructions Recorded Confirmed dextroamphetamine-amphetamine 15 15 mg PO BID 02/02/23 09/15/23 mg tablet sertraline 50 mg tablet 50 mg PO DAILY 02/02/23 09/15/23 levothyroxine 50 mcg tablet 50 mcg PO DAILY 09/15/23 09/15/23 Allergies Allergy/AdvReac Type Severity Reaction Status Date / Time No Known Allergies Allergy Verified 07/28/23 18:05 Review of Systems Review of Systems: CONSTITUTIONAL: Endorses malaise, chills, sweats, fever EYES: Denies visual changes, redness, or discharge ENT: Reports rhinorrhea, congestion, sinus pain, denies otalgia, sore throat CARDIOVASCULAR: Denies chest pain, palpitations, edema RESPIRATORY: Reports cough, post nasal drainage. Denies dyspnea GASTROINTESTINAL: Denies abdominal pain, nausea, vomiting, diarrhea SKIN: reports rash MUSCULOSKELETAL: Endorses myalgia NEUROLOGIC: endorses headache PMFSH Past Medical History Medical History Anxiety and depression Fracture, finger right 4th finger with surgical repair Hip dislocation, left from fall Hypothyroid Surgical History Surgical History H/O laparoscopy endometriosis H/O sinus surgery History of hysterectomy History of left knee surgery ACL and other reconstruction Family History Family History Grandparent Cancer Heart disease Hypertension Arthritis Respiratory illness Mother Respiratory illness Hypertension Depression Father Hypertension Other Cerebrovascular accident Social History Social History Smoking status: Former smoker Additional smoking assessment comments: quit 2020 after smoking 5 years Alcohol intake: current Alcohol use details: social Substance use: never Living arrangements: with family Gender identity (if verbalized by the patient): Female Exam Narrative: GENERAL: mildly Ill-appearing, nontoxic no acute distress. EYES: PERRLA, conjunctivae clear ENT: Mucous membranes moist. nasal congestion TMs pearly ash with dull light reflex bilaterally; no tragal tenderness. Oropharynx not erythematous without lesions or exudate, no drooling, no hoarseness, no trismus, uvula midline. No tripod positioning, muffled voice, soft palate or pharyngeal wall bulging NECK: Supple. right posterior cervical lymphadenopathy CHEST: Clear to auscultation, breath sounds equal. HEART: Regular rate and rhythm. No murmur heard. SKIN: Warm, dry, Right trap with approx 3cm diameter area of clustered erythematous raised dry lesions c/w zoster, tender, no active drainage. NEURO: Alert and oriented x3. Course Course Emergency Course: Patient is aware of diagnosis, understands and agrees to treatment plan. Anticipatory guidance given. Patient agrees to follow-up as directed and is aware of reasons to seek care at the emergency department. Portions of this record may have been created with voice recognition
== END 2023-09-15 12:57 | disposition home or self-care (01) ==
PROVIDERS: Emergency Provider Nurse Practitioner Family
DX: B34.9 Viral infection, unspecified (principal); B02.9 Zoster without complications; Z87.891 Personal history of nicotine dependence; E03.9 Hypothyroidism, unspecified; F41.9 Anxiety disorder, unspecified; F32.A Depression, unspecified
CPT/HCPCS: 87804; 99213; G0463

== ENCOUNTER 2023-09-17 12:06 | Emergency (ER) | payer BC, SELFPAY ==
--- NOTE | ~2023-09-17 | XR_ITS ---
EXAMINATION: XR chest 1V portable INDICATION: Cough and shortness of breath TECHNIQUE: Portable AP chest at 1307 hours COMPARISON: 07/15/2018 FINDINGS: There are minimal airspace opacities of the lung bases. No pleural effusion or pneumothorax . The cardiomediastinal silhouette is normal. IMPRESSION: 1. Minimal airspace opacities of the lung bases, consistent with atelectasis versus pneumonia. Reviewed, dictated and finalized at location F. BUILDER IMPRESSION: 1. Minimal airspace opacities of the lung bases, consistent with atelectasis ve rsus pneumonia.
--- NOTE | 2023-09-17 12:08 | ED.URI ---
HPI - URI/Sore Throat General Chief Complaint: Upper Respiratory Infection Stated Complaint: sore throat Time Seen by Provider: 09/17/23 12:08 Source: patient Mode of arrival: ambulatory Limitations: no limitations History of Present Illness HPI Narrative: 43-year-old female, smoker with a history of anxiety / depression, hypothyroidism, status post hysterectomy, endometriosis has one-week history of -- sore throat -- cough with mucopurulent sputum -- nasal congestion with rhinorrhea. The nasal discharge is yellow at times -- bilateral ear pain without any drainage -- chills with sweating patient went to primary care /our urgent care and was tested negative for COVID and influenza. She presents to the ER with ongoing symptoms. patient is currently on day 3 of [facility] MD elicited complaint: cough, sore throat and rhinorrhea Onset (ago): day(s) ( symptoms started 7 days ago) Consistency: constant Severity: moderate Description of mucous: yellow Able to tolerate fluids by mouth: Yes Exacerbating factors: nothing Relieving factors: nothing Associated symptoms: chills, voice changes, rhinorrhea, nasal congestion, sore throat, cough, shortness of breath, nausea and dysuria Treatments prior to arrival: none Related Data Home Medications Medication Instructions Recorded Confirmed dextroamphetamine-amphetamine 15 15 mg PO BID 02/02/23 09/17/23 mg tablet sertraline 50 mg tablet 50 mg PO DAILY 02/02/23 09/17/23 levothyroxine 50 mcg tablet 50 mcg PO DAILY 09/15/23 09/17/23 Allergies Allergy/AdvReac Type Severity Reaction Status Date / Time No Known Allergies Allergy Verified 09/17/23 12:08 Review of Systems Review of Systems: All systems reviewed & are unremarkable except as noted in HPI and below Constitutional: Constitutional: Reports as per HPI and Reports no additional constitutional complaints Eyes: Eyes: Reports as per HPI, Reports no additional eye complaints and Reports photophobia ENT: Reports system reviewed and no additional complaints, except as documented, Reports as per HPI, Reports nasal congestion and Reports sore throat Cardiovascular: Cardiovascular: Reports as per HPI and Reports no additional cardiovascular complaints Respiratory: Respiratory: Reports as per HPI, Reports no additional respiratory complaints, Reports cough and Reports dyspnea Gastrointestinal: Gastrointestinal: Reports as per HPI and Reports no additional gastrointestinal complaints Genitourinary: Genitourinary: Reports no additional female genitourinary complaints Musculoskeletal: Musculoskeletal: Reports no additional musculoskeletal complaints and Reports as per HPI Integumentary/Breasts: Skin/Breast: Reports system reviewed and no additional complaints, except as docu and Reports as per HPI Neurologic: Reports system reviewed and no additional complaints, except as documented and Reports as per HPI Psychiatric: Psychiatric: Reports no additional psychiatric complaints and Reports as per HPI Endocrine: Endocrine: Reports no additional endocrine complaints and Reports as per HPI Hematologic/Lymphatic: Hematologic/Lymphatic: Reports no additional hematologic/lymphatic complaints and Reports as per HPI Allergic/Immunologic: Allergic/Immunologic: Reports no additional allergic/immunologic complaints and Reports as per HPI PMFSH Past Medical History Medical History Anxiety and depression Fracture, finger right 4th finger with surgical repair Hip dislocation, left from fall Hypothyroid Surgical History Surgical History H/O laparoscopy endometriosis H/O sinus surgery History of hysterectomy History of left knee surgery ACL and other reconstruction Family History Family History Grandparent Cancer Heart disease Hypertension Arthritis Re
[2023-09-17 12:09] VITALS: BP 103/83; PULSE 81; RESP 17; TEMP 36.4; O2SAT 100
[2023-09-17 12:30] VITALS: BP 102/74; PULSE 71; RESP 17; O2SAT 98
[2023-09-17 12:58] LABS: Appearance Urine Clear (Clear); Bilirubin Urine Negative (Negative); Blood Urine 1+ (Negative); Color Urine Light Yellow (Yellow); Glucose Urine UA Negative (Negative); Ketones Urine Negative (Negative); Leukocyte Esterase Ur Negative LEU/UL (Negative); Nitrate Urine Negative (Negative); Protein Urine Negative (Negative); Specific Grav Ur 1.015 (1.010-1.020); Urobilinogen Urine 0.2 mg/dL (0.2-1.0)
[2023-09-17 13:00] VITALS: BP 112/68; PULSE 75; RESP 17; O2SAT 98
[2023-09-17 13:08] LABS: Basophils Absolute Auto 0.09 K/mm3 (0.00-0.10); Basophils Percent Auto 1.1 % (0.0-1.0); Eosinophils Absolute Auto 0.27 K/mm3 (0.02-0.50); Eosinophils Percent Auto 3.3 % (1.0-6.0); Hematocrit 41.3 % (35.0-49.0); Hemoglobin 13.7 g/dL (12.0-15.0); Immature Granulocyte Absolute 0.02 K/mm3 (0.00-0.00); Immature Granulocyte Percent A 0.2 % (0.0-0.0); Lymphocytes Absolute Auto 2.73 K/mm3 (1.10-4.50); Lymphocytes Percent Auto 33.3 % (18.0-42.0); Mean Corpuscular HGB Conc 33.2 g/dL (32.0-36.0); Mean Corpuscular Hemoglobin 31.1 pg (27.0-31.0); Mean Corpuscular Volume 93.9 fL (78.0-102.0); Mean Platelet Volume 10.2 fl (9.2-11.8); Monocytes Absolute Auto 0.74 K/mm3 (0.10-0.90); Neutrophils Absolute Auto 4.4 K/mm3 (1.7-7.2); Neutrophils Percent Auto 53.1 % (50.0-70.0); Platelet Count Result 249 K/mm3 (150-420); Red Cell Distribution Width 12.3 % (11.6-14.4); White Blood Count 8.2 K/mm3 (4.8-10.8)
[2023-09-17 13:09] LABS: Add Urine Microscopic? YES; Bacteria Urine Trace /hpf; RBC Urine 0-2 /hpf (0-2); Squamous Epithelial Cell Urine Few /hpf (Few); WBC Urine None seen /hpf (0-3)
[2023-09-17 13:18] LABS: SARS-CoV-2 RNA PCR Negative (Negative)
[2023-09-17 13:20] LABS: Influenza A QL RT-PCR Negative (Negative); Influenza B QL RT-PCR Negative (Negative); RSV RNA, RT-PCR Positive (Negative); Strep Group A RT-PCR NOT DETECTED (Negative)
[2023-09-17 13:30] VITALS: BP 119/71; PULSE 70; RESP 17; O2SAT 98
[2023-09-17 13:33] LABS: Alanine Aminotransferase 16 U/L (14-59); Albumin Level 3.4 g/dL (3.4-5.0); Alkaline Phosphatase 56 U/L (46-116); Anion Gap 10 mmol/L (8-16); Aspartate Amino Transferase 14 U/L (15-37); Bilirubin,Total 0.2 mg/dL (0.00-1.00); Blood Urea Nitrogen 10 mg/dL (7-18); Calcium 8.5 mg/dL (8.5-10.1); Carbon Dioxide 27 mmol/L (21-32); Chloride 102 mmol/L (98-108); Estimated Glomerular Filt Rate > 60; Glucose 101 mg/dL (70-99); Osmolality Calculated 287 mOsm/kg (285-295); Potassium 3.8 mmol/L (3.5-5.1); Sodium 139 mmol/L (136-145); Total Protein 7.2 g/dL (6.4-8.2)
[2023-09-17 13:34] LABS: Lactic Acid Reflex 0.7 mmol/L (0.4-2.0)
[2023-09-17 14:00] VITALS: BP 105/75; PULSE 68; RESP 17; O2SAT 97
[2023-09-17 14:30] VITALS: BP 117/79; PULSE 61; RESP 17; TEMP 36.4; O2SAT 97
== END 2023-09-17 14:30 | disposition home or self-care (01) ==
PROVIDERS: Emergency Provider Internal Medicine Critical Care Medicine
DX: J20.5 Acute bronchitis due to respiratory syncytial virus (principal); J04.31 Supraglottitis, unspecified, with obstruction; E03.9 Hypothyroidism, unspecified; F41.9 Anxiety disorder, unspecified; F32.A Depression, unspecified; Z79.899 Other long term (current) drug therapy; Z87.891 Personal history of nicotine dependence; Z20.822 Contact with and (suspected) exposure to COVID-19
CPT/HCPCS: 36415; 71045; 80053; 81001; 83605; 85025; 87637; 87651; 99283

== ENCOUNTER 2024-04-28 08:56 | Emergency (ER) | payer BC, SELFPAY ==
[2024-04-28 09:04] VITALS: BP 117/71; PULSE 74; RESP 18; TEMP 36.5; O2SAT 100
[2024-04-28] MEDS: diphenhydrAMINE HCl INJ 50 MG/ML VIAL IM (09:30)
[2024-04-28] MEDS: methylPREDNISolone SOD SUCC 125 MG VIAL IM (09:30)
--- NOTE | 2024-04-28 12:39 | ED.ALLEREA ---
HPI - Allergic Reaction General Chief complaint: Allergic Reaction Stated complaint: feel like her throat is closing Time Seen by Provider: 04/28/24 09:09 Source: patient, RN notes reviewed and old records reviewed Mode of arrival: ambulatory Limitations: no limitations History of Present Illness HPI narrative: 43-year-old female to [facility] with multiple yellow jacket stings to bilateral upper extremities since yesterday. There are three stings total; one to each forearm and one to left hand. Patient endorsing neck and facial tightness as well as tightness/swelling to right dorsal forearm. Patient denies difficulty swallowing, shortness of breath, chest pain, weakness, allergies. Patient endorses history of anxiety depression, med compliant. Patient anxious in exam room upon arrival. Respirations even and nonlabored. Patient able to speak in full sentences without difficulty. Patient able to tolerate fluids by mouth. Patient in no acute distress. Related Data Home Medications Medication Instructions Recorded Confirmed sertraline 50 mg tablet 50 mg PO DAILY 02/02/23 09/17/23 Allergies Allergy/AdvReac Type Severity Reaction Status Date / Time No Known Allergies Allergy Verified 09/17/23 12:08 Review of Systems Review of Systems: All systems reviewed & are unremarkable except as noted in HPI and below Constitutional: Constitutional: Reports no additional constitutional complaints Eyes: Eyes: Reports no additional eye complaints ENT: Reports as per HPI, Denies change in voice, Denies dysphagia and Reports throat swelling (Patient endorses sensation of throat swelling) Cardiovascular: Cardiovascular: Reports no additional cardiovascular complaints, Denies chest pain and Denies dyspnea Respiratory: Respiratory: Reports no additional respiratory complaints, Denies cough and Denies dyspnea Musculoskeletal: Musculoskeletal: Reports no additional musculoskeletal complaints Integumentary/Breasts: Skin/Breast: Reports as per HPI, Reports swelling, Reports erythema, Reports skin swelling and Reports other Comments: 3 insect stings; one to each forearm and one to left hand. Right dorsal forearm with surrounding redness and swelling Neurologic: Reports system reviewed and no additional complaints, except as documented Psychiatric: Psychiatric: Reports no additional psychiatric complaints PMFSH Past Medical History Medical History Anxiety and depression Fracture, finger right 4th finger with surgical repair Hip dislocation, left from fall Hypothyroid Surgical History Surgical History H/O laparoscopy endometriosis H/O sinus surgery History of hysterectomy History of left knee surgery ACL and other reconstruction Family History Family History Grandparent Cancer Heart disease Hypertension Arthritis Respiratory illness Mother Respiratory illness Hypertension Depression Father Hypertension Other Cerebrovascular accident Social History Social History Smoking status: Former smoker Additional smoking assessment comments: quit 2020 after smoking 5 years Alcohol intake: current Alcohol use details: social Substance use: never Living arrangements: with family Gender identity (if verbalized by the patient): Female Comments At the time of my signature, I reviewed and agree with the nursing past medical, surgical, social, and family history. There is no relevant family history pertinent to the patient complaint. Exam Const: General: cooperative, healthy appearing, no acute distress, well developed, alert, anxious, well groomed and well nourished Nutritional Appearance: well nourished Orientation/consciousness: patient oriented x3
== END 2024-04-28 10:05 | disposition home or self-care (01) ==
PROVIDERS: Emergency Provider Nurse Practitioner Family; PCP Physician Assistant
DX: L50.0 Allergic urticaria (principal); T63.461A Toxic effect of venom of wasps, accidental (unintentional), initial encounter; F41.9 Anxiety disorder, unspecified; F32.A Depression, unspecified; E03.9 Hypothyroidism, unspecified
CPT/HCPCS: 96372; 99214; G0463; J1200; J2919